=== PATIENT | female | born 1955 | race Hispanic/Latino ===

== ENCOUNTER 2019-01-18 09:41 | Outpatient (CLI) | payer BC ==
--- NOTE | 2019-01-18 12:42 | Fluoroscopy Report ---
AIR CONTRAST BARIUM ENEMA HISTORY: Altered bowel habits, incomplete colonoscopy. COMPARISON: None. FINDINGS: Urinalysis Technician film of the abdomen is unremarkable. A rectal tube was inserted for retrograde administration o f barium contrast agent and air. The colon is normal mucosal pattern and distensibility throughout. N o evidence for stenosis, mass, mucosal defect or polyposis. There are a few scattered diverticula in the cecum and sigmoid region. The cecum is adequately visualized and unremarkable. The appendix and t erminal ileum are also visualized and unremarkable. There is normal emptying of the colon on the post evacuation film. IMPRESSION: Mild diverticulosis. No mucosal defect or mass is identified. Fluoroscopy time: 2.3 minutes Fluoroscopic images: 22 Signer Name: Jeff Owusu Jr, MD Signed: 01/18/2019 12:37 PM Workstation Name: [id number]
== END 2019-01-18 09:42 | disposition home or self-care (01) ==
LOC: FLUORO 09:41
PROVIDERS: ATTEND Family Medicine
DX: K57.30 Diverticulosis of large intestine without perforation or abscess without bleeding (principal); R19.4 Change in bowel habit
CPT/HCPCS: 74280